=== PATIENT | male | born 1965 | race Caucasian/White ===

== ENCOUNTER 2023-04-09 05:38 | Outpatient (CLI) | payer MEDICARE ==
[~2023-04-09] VITALS: Ht 203 cm; Wt 95.0 kg
[2023-04-16] MEDS ORDERED: ROSU10TA28 PO (09:29)
[2023-04-16] MEDS ORDERED: METF-397 PO (09:29)
[2023-04-16] MEDS ORDERED: RISP1TAB93 PO (09:29)
[2023-04-16] MEDS ORDERED: RISP0.5T65 PO (09:29)
== END 2023-04-16 09:33 | disposition home or self-care (01) ==
LOC: PREOP 05:38
PROVIDERS: ATTEND Surgery
DX: Z01.818 Encounter for other preprocedural examination (principal)

== ENCOUNTER → 2023-07-23 | Outpatient (CLI) | payer MEDICARE, MEDICAID ==
[~2023-07-23] VITALS: Ht 203.2 cm; Wt 96.7 kg
[~2023-07-23] MED LIST: CYAN1TAB26 PO; DOCU100T2 PO; LITH300C PO; METF-397 PO; RISP0.5T65 PO; RISP1TAB93 PO; ROSU10TA28 PO
== END | disposition home or self-care (01) ==
LOC: PREOP 05:42
PROVIDERS: ATTEND Surgery
DX: Z01.818 Encounter for other preprocedural examination (principal)

== ENCOUNTER 2023-08-05 06:54 | Day surgery (SDC) | payer MEDICARE, MEDICAID ==
[~2023-08-05] VITALS: Ht 203 cm; Wt 96.7 kg
[2023-08-05] MEDS: LACTATED RINGERS 1,000 ML 1,000 ML IV STA (07:20)
[2023-08-05 07:32] VITALS: BP 134/87
[2023-08-05] MEDS ORDERED: proPOfol INJECTION 200 MG/20 ML VIAL IV ONE (09:13)
--- NOTE | 2023-08-05 09:23 | Progress Note-Post Operative ---
Post-Operative Progess Note Surgeon (s)/Hydroelectric Station Chief (s) Surgeon DAVIS WORKMAN DO Hydroelectric Station Chief: n/a Pre-Operative Diagnosis Hx colon polyps Post-Operative Diagnosis Colon polyps, rectal polyp Procedure & Operative Findings Date of Procedure 08/05/23 Procedure Performed/Findings Colonoscopy w/ hot bx polypectomy x4 & snare polypectomy x1 Anesthesia Type per WORLD LANGUAGE TEACHER Estimated Blood Loss Estimated blood loss (mL): none Specimens/Packing Specimens Removed Colon polyps, rectal polyp DAVIS WORKMAN DO Aug 05, 2023 09:23
--- NOTE | 2023-08-05 09:24 | Discharge Inst-Simple/Standard ---
Discharge Inst-Standard Patient Instructions/Follow Up Plan of Care/Instructions/FU: Abby 2 weeks Activity as Tolerated: Yes Discharge Diet: Regular Diet DAVIS WORKMAN DO Aug 05, 2023 09:24
[2023-08-05 09:25] VITALS: BP 135/78
[2023-08-05 09:30] VITALS: BP 118/73
[2023-08-05 10:00] VITALS: BP 118/73
--- NOTE | 2023-08-05 12:34 | Anesthesia-General Post-Op ---
MAC Patient Condition Mental Status/LOC: Same as Preop Cardiovascular: Satisfactory Nausea/Vomiting: Absent Respiratory: Satisfactory Pain: Controlled Complications: Absent Post Op Complications Complications None Follow Up Care/Instructions Patient Instructions None needed. Anesthesiology Discharge Order Discharge Order Patient is doing well, no complaints, stable vital signs, no apparent adverse anesthesia problems. No complications reported per nursing. DANIELLE TALLEY CRNA Aug 05, 2023 12:34
--- NOTE | 2023-08-05 15:22 | OPERATIVE REPORT ---
DATE OF SERVICE: 08/05/2023 PREOPERATIVE DIAGNOSIS: History of colon polyps. POSTOPERATIVE DIAGNOSES: Colon polyps and rectal polyp. SURGEON: Davis Mora DO ANESTHESIA: Per MANAGER ENGINE. PROCEDURES: Colonoscopy with hot biopsy polypectomy x4 and snare polypectomy x1. ESTIMATED BLOOD LOSS: None. COMPLICATIONS: None. INDICATIONS: The patient is a 58-year-old male with history of polyps. He understands risks and benefits of procedure. Consent was signed in chart. DESCRIPTION OF PROCEDURE: The patient was taken to the endoscopy suite, placed in left lateral recumbent position. Timeout was performed. Digital rectal exam was performed. No palpable polyps, masses or ulcerations. Scope was inserted in the rectum, advanced all the way to the cecum with minimal difficulty. Prep was adequate with lots of irrigation and suction. Scope was then slowly retracted back. No polyps, masses or ulcerations in the cecum and ascending colon. The transverse colon, polyp was present, which hot biopsy polypectomy was performed. Scope was then continuously retracted back. Two polyps were present in the descending colon, which hot biopsy polypectomies were performed. Scope was then continuously retracted back, noting some minimal diverticulosis also sigmoid polyp, which hot biopsy polypectomy was performed. Scope was then continuously retracted back into the rectum, where another polyp was present, which snare polypectomy was performed. Scope was retroflexed, noting no other pathology. Scope was returned to its normal position, slowly withdrawn until completely removed. The patient tolerated the procedure well without complications, taken to recovery room in stable condition. RECOMMENDATIONS: The patient will follow up on pathology in 2 weeks. We would recommend repeat colonoscopy in 5 years. Any issues before that, he will be seen at that time. With diverticulosis, we would recommend high fiber diet Job ID: [id number] DocumentID: [id number] Dictated Date: 08/05/2023 09:24:58 Leather Patcher Date: 08/05/2023 15:20:00 Dictated By: DAVIS MORA DO
== END 2023-08-05 10:00 | disposition home or self-care (01) ==
LOC: ENDO 06:54
PROVIDERS: ATTEND Surgery
DX: Z12.11 Encounter for screening for malignant neoplasm of colon (principal); D12.3 Benign neoplasm of transverse colon; D12.4 Benign neoplasm of descending colon; D12.5 Benign neoplasm of sigmoid colon; D12.8 Benign neoplasm of rectum; K57.30 Diverticulosis of large intestine without perforation or abscess without bleeding